=== PATIENT | male | born 1940 | race Caucasian/White ===

== ENCOUNTER → 2016-07-28 | Outpatient (CLI) | payer OTHER ==
[~2016-07-28] MED LIST: ADVAIR 250/501 EA INH; ALBUTEROL0.09 MG/A2 IH; ALBUTEROL2.5 MG/0.5 INH; AMLODIPINE BESYL5 MG PO; AMOXIL500 M1 PO; ANTIVERT/5050 MG PO; ANUCORT HC25 MG R; ASPI-COR81 M1 PO; ASPIR-LOW81 MG PO; ASPIRIN E.C.325 MG PO; ASPIRIN325 MG PO; ATORVASTATIN CA80 M1 PO; CARDIZEM120 MG PO; CENTRUM SILVER1 TA1 PO; CILOSTAZOL PO; CILOSTAZOL100 MG PO; CLARITIN10 MG PO; CREON 60,000U/1 CAP PO; DICYCLOMINE10 MG PO; ELIQUIS5 M1 PO; FINASTERIDE5 M1 PO; FLOMAX0.4 MG PO; GINKO BILOBA120 MG PO; HYDROCHLOROTHIA25 M1 PO; HYDROCODONE BIT1 T11 PO; HYDRODIURIL25 MG PO; IMDUR SA30 MG PO; ISOSORBIDE MONO30 MG PO; LIPITOR40 MG PO; LISINOPRIL20 MG PO; LIVALO2 MG PO; MAG-OX 400400 MG PO; METOPROLOL SUCC25 M2 PO; METOPROLOL SUCC50 M1 PO; METOPROLOL50 MG PO; MUCINEX600 MG PO; MUCUS RELIEF400 MG PO; NITROSTAT0.4 MG SL; NORVASC5 MG PO; NOVAPLUS AZITH500 MG PO; PANTOPRAZOLE SO40 MG PO; PANTOPRAZOLE40 M1 PO; PLAVIX75 MG PO; PREDNICOT10 MG PO; PREDNICOT20 MG PO; PROPAFENONE HC150 MG PO; PROSCAR5 MG PO; RED YEAST RICE600 MG PO; SERTRALINE HYDR25 MG PO; SYMBICORT1 AE1 INH; TEMAZEPAM15 M1 PO; TERAZOSIN HCL5 M1 PO; TESSALON PERLE200 MG PO; TYLENOL W/CODEI1 TA2 PO; TYLENOL325 M2 PO; VICODIN 500 MG-1 TAB PO; VITAMIN D32000 I1 PO; ZITHROMAX Z PA250 MG PO; ZYRTEC10 MG PO
== END | disposition home or self-care (01) ==
LOC: CT 07-26 09:00
DX: R91.1 Solitary pulmonary nodule (principal)

== ENCOUNTER → 2016-08-17 | Day surgery (SDC) | payer OTHER ==
[~2016-08-17] VITALS: Ht 177.8 cm; Wt 67.1 kg
--- NOTE | ~2016-08-17 | O ---
[place], [place] OPERATIVE NOTE NAME: STEFF WHALEN UNIT #: [id number] ROOM: DOCTOR: NICHOL AMADOR MD BIRTHDATE: [birth year] DOS: 08/17/2016 INDICATIONS: The patient is a 76-year-old who has presented with chief complaint of change in bowel habit, diarrhea, undergoing investigation. ALLERGIES: No known medication. FAMILY HISTORY: Noncontributory. PAST MEDICAL HISTORY: Hypertension. PAST SURGICAL HISTORY: Appendectomy. PROCEDURE: Today's procedure part of investigation is colonoscopy plus polypectomy plus biopsy randomly. PREMEDICATION: Versed and Diprivan. SCOPE: Olympus forward viewing colonoscope 10L video. REPORT: After putting the patient in the left lateral position and after application of lubricant to rectal pouch and digital examination, scope was introduced. Thereafter, under direct visualization, I advanced through the length of colon without difficulty. Colon mucosa and vascularity carefully examined. Base of the cecum explored, appendiceal orifice identified, and ileocecal valve was defined. Retained stool throughout the colon periodically was noticed. A sessile polypoid lesion in the rectal pouch with piecemeal polypectomy removed. Random biopsy of the transverse colon was obtained. The patient was gradually extubated, tolerated the procedure well. IMPRESSION: A colonic polyp at rectal pouch, status post piecemeal polypectomy, sessile in character. Otherwise, status post random biopsy of mid transverse colon, ruling out collagenous colitis, with retention of stool that I noticed during the course of examination. I am not suspecting severe diarrhea on this patient; however, the patient was advised to abstain from drinking 3 beers per day plus 3 shots of whiskey. Possibility of pancreatic insufficiency also has been considered. The patient is to follow up with you in office and p.r.n. visit with us in GI Clinic. The patient advised to abstain from smoking as well. Further workup as the biopsies become available. Thank you very much indeed. [place], [place] OPERATIVE NOTE NAME: STEFF WHALEN UNIT #: [id number] ROOM: DOCTOR: NICHOL AMADOR MD BIRTHDATE: [birth year] NICHOL AMADOR MD CM:OPRECORD:OPERATIVE NOTE 1342 1521 NICHOL AMADOR MD 08/17/16 1521 interface
[2016-08-17 13:00] VITALS: BP 162/98
[2016-08-17 13:40] VITALS: BP 121/67
[2016-08-17 13:54] VITALS: BP 153/70
[2016-08-17 14:07] VITALS: BP 155/76
== END | disposition home or self-care (01) ==
LOC: SDC 08-13 10:15
DX: K62.1 Rectal polyp (principal); I10 Essential (primary) hypertension; Z90.49 Acquired absence of other specified parts of digestive tract; J44.9 Chronic obstructive pulmonary disease, unspecified; I25.2 Old myocardial infarction; M19.90 Unspecified osteoarthritis, unspecified site; E78.5 Hyperlipidemia, unspecified; E55.9 Vitamin D deficiency, unspecified; N40.0 Benign prostatic hyperplasia without lower urinary tract symptoms; F10.20 Alcohol dependence, uncomplicated; Z82.49 Family history of ischemic heart disease and other diseases of the circulatory system; F17.210 Nicotine dependence, cigarettes, uncomplicated

== ENCOUNTER → 2016-10-01 | Outpatient (CLI) | payer OTHER ==
[2016-10-01 12:17] LABS: BASO % 0.1 % (0.0-1.0); EOS # 0.1 10*3/uL (0.0-0.4); EOS % 1.1 % (1.0-4.0); HEMATOCRIT 44.2 % (42.0-52.0); HEMOGLOBIN 15.3 g/dl (14.0-18.0); IG # 0.1 10*3/uL (0.0-0.1); LYMPH # 2.4 10*3/uL (1.3-4.4); LYMPH % 32.4 % (27.0-41.0); MEAN CELL VOLUME 90.2 fl (80.0-94.0); MEAN CORPUSCULAR HGB 31.2 pg (27.0-31.0); MEAN CORPUSCULAR HGB CONC 34.6 g/dl (33.0-37.0); MEAN PLATELET VOLUME 10.6 fl (9.6-12.3); MONO # 0.8 10*3/uL (0.1-1.0); MONO % 11.2 % (3.0-9.0); NEUT # 4.1 10*3/uL (2.3-7.9); NEUT % 54.3 % (47.0-73.0); PLATELET COUNT AUTOMATED 268 10*3/uL (130-400); RED CELL DISTRI WIDTH 14.3 % (0-14.5); WHITE BLOOD COUNT 7.5 10*3/uL (4.8-10.8)
[2016-10-01 12:43] LABS: ALBUMIN 3.8 gm/dl (3.1-4.5); BILIRUBIN, TOTAL 0.4 mg/dl (0.2-1.0); POTASSIUM 4.3 mmol/L (3.5-5.1)
== END ==
LOC: LAB 11:43
PROVIDERS: Internal Medicine
DX: K92.1 Melena (principal); A09 Infectious gastroenteritis and colitis, unspecified

== ENCOUNTER 2016-10-04 20:56 | Emergency (ER) | payer OTHER ==
[~2016-10-04] VITALS: Ht 180.3 cm; Wt 64.4 kg
[~2016-10-04 20:56] MED LIST changes: +IMDUR SA60 M1 PO; +IMODIUM AD0.2 MG/1 M PO; -ISOSORBIDE MONO30 MG PO; +MELATONIN3 MG PO; +METOPROLOL SUC100 M1 PO; -METOPROLOL SUCC50 M1 PO; +NITROGLYCERIN0.4 MG SL; +RED YEAST RICE600 M1 PO; +SERTRALINE HYD100 MG PO; -SERTRALINE HYDR25 MG PO; +VITAMIN B-11 TAB PO; +VITAMIN D5000 I3 PO; +XARELTO20 M1 PO
[2016-10-04 21:55] LABS: BASO % 0.2 % (0.0-1.0); EOS # 0.1 10*3/uL (0.0-0.4); EOS % 1.8 % (1.0-4.0); HEMATOCRIT 37.3 % (42.0-52.0); HEMOGLOBIN 12.9 g/dl (14.0-18.0); LYMPH # 2.4 10*3/uL (1.3-4.4); LYMPH % 39.5 % (27.0-41.0); MEAN CELL VOLUME 90.3 fl (80.0-94.0); MEAN CORPUSCULAR HGB 31.2 pg (27.0-31.0); MEAN CORPUSCULAR HGB CONC 34.6 g/dl (33.0-37.0); MEAN PLATELET VOLUME 11.1 fl (9.6-12.3); MONO # 0.6 10*3/uL (0.1-1.0); NEUT % 48.2 % (47.0-73.0); PLATELET COUNT AUTOMATED 181 10*3/uL (130-400); RED BLOOD COUNT 4.13 10*6/uL (4.50-5.90); RED CELL DISTRI WIDTH 14.5 % (0-14.5); WHITE BLOOD COUNT 6.1 10*3/uL (4.8-10.8)
[2016-10-04 22:05] LABS: PROTHROMBIN TIME 10.4 SECONDS (9.0-12.4)
[2016-10-04 23:09] LABS: ALBUMIN 3.2 gm/dl (3.1-4.5); ALKALINE PHOSPHATASE 46 U/L (45-117); BILIRUBIN, TOTAL 0.2 mg/dl (0.2-1.0); BUN 18 mg/dl (7-24); C-REACTIVE PROTEIN 1.08 MG/DL (0-0.3); CARBON DIOXIDE 26 mmol/L (21-32); CHLORIDE 106 mmol/L (98-107); EST GLOM FILT AFRICAN AMERICAN > 60 ml/min; GLUCOSE 88 mg/dL (65-99); MAGNESIUM 1.7 mg/dL (1.5-2.1); POTASSIUM 4.1 mmol/L (3.5-5.1); SGOT/AST 14 IU/L (3-35); SGPT/ALT 16 U/L (12-78); SODIUM 137 mmol/L (136-145); TOTAL PROTEIN 6.4 gm/dL (6.4-8.2); TROPONIN I < 0.015 ng/ml (<0.045)
== END 2016-10-05 01:14 | disposition home or self-care (01) ==
LOC: ED 20:57
PROVIDERS: Student in an Organized Health Care Education/Training Program
DX: R19.5 Other fecal abnormalities (principal); F17.200 Nicotine dependence, unspecified, uncomplicated; Z90.49 Acquired absence of other specified parts of digestive tract; N40.0 Benign prostatic hyperplasia without lower urinary tract symptoms; K21.9 Gastro-esophageal reflux disease without esophagitis; I13.0 Hypertensive heart and chronic kidney disease with heart failure and stage 1 through stage 4 chronic kidney disease, or unspecified chronic kidney disease; N18.3 Chronic kidney disease, stage 3 (moderate); E78.5 Hyperlipidemia, unspecified

== ENCOUNTER 2016-10-27 20:03 | Inpatient (IN) | payer OTHER ==
[~2016-10-27] VITALS: Ht 177.8 cm; Wt 72.6 kg
--- NOTE | ~2016-10-27 | CON ---
[place], [place] REPORT OF CONSULTATION NAME: STEFF WHALEN UNIT #: [id number] ROOM: 503 DOCTOR: MAICOL BATISTA MD BIRTHDATE: [birth year] DOS: REQUESTING PHYSICIAN: Dr. Hyde. REASON FOR CONSULTATION: Chest pain. ASSESSMENTS: 1. Current presentation with complaint of chest pain, an elephant sitting on the chest. 2. Elevated cardiac enzymes consistent with a non-ST elevation myocardial infarction. 3. Continued off and on cardiac complaint while on medication. 4. History of coronary artery disease, stress test in June of last year with Dr. Goff. 5. Normal stress test done by Dr. Mitchell this September with normal left ventricular function. 6. Hypertension. 7. Hyperlipidemia. 8. Active tobacco abuse. 9. Early family history of heart disease. 10. Known history of atrial flutter, currently on Xarelto. PLAN: 1. Continue tachycardiac enzymes including CPK and MB. 2. Continue Toprol-XL 100 mg daily, but change it to 50 mg b.i.d. 3. Hold Xarelto and switch to Lovenox now in preparation for possible cath in a.m. 4. Smoking cessation. 5. Imdur 60 mg once a day. 6. Continue aspirin. 7. Lipitor 80 mg x 1 now. 8. Aspirin 325 mg x 1 now. 9. Transfer the patient to [facility] in [place] for cardiac catheterization in a.m. HISTORY OF PRESENT ILLNESS: The patient is a pleasant 76-year-old gentleman well known to our practice, who initially had been seen and evaluated by Dr. Goff in June of last year with a stress test and the patient was positive for inferior ischemia. The patient was transferred for catheterization on [facility] where so far I do not have any details. Apparently, the patient had another stress test with Dr. Mitchell this September, which was reported to be normal. In between, the patient had been having complaining of chest pain, heaviness, tightness and it can occur 2-3 times a week. It can last 5-10 minutes and mostly at rest, but can be provoked by activity. The patient is still drowse, active, but does not follow a regular exercise program. There is some limitation towards he does mainly due to episode of chest pain. The pain is heavy, tight, yesterday had an episode that the patient felt an elephant sitting on his chest. With that there was some elevated troponin. The patient's Cardiology consultation was called in. Never had any symptomatic palpitation or any associated dizziness, lightheadedness or syncope. The patient sleeps on 2 [place], [place] REPORT OF CONSULTATION NAME: STEFF WHALEN UNIT #: [id number] ROOM: [facility] DOCTOR: MAICOL BATISTA MD BIRTHDATE: [birth year] pillows with no reported PND, orthopnea or pedal edema. There is no reported snoring. No fever, no chills, no night sweats, maintain good appetite, no weight loss. PAST MEDICAL HISTORY: As detailed in my assessment. SOCIAL HISTORY: The patient continued to smoke, has been doing this since he was 16 years old. No heavy alcohol or illicit drug abuse. FAMILY HISTORY: Both parents . His mother at age 70. His father in his early 60s with unknown cause. The patient has 1 brother and 6 sisters with no reported heart problems. CURRENT MEDICATIONS: Thiamine, Zoloft, Protonix, Toprol, Imdur, Proscar, vitamin D, Norvasc, Xarelto, Rythmol, Spiriva, Nitrostat. ALLERGIES: The patient has no known drug allergies. REVIEW OF SYSTEMS: CONSTITUTIONAL: Currently, the patient denies any headache, diplopia or blurry vision. No fever, no chills, no night sweats. No abdominal pain. No bright blood per rectum or tarry stools. MUSCULOSKELETAL: The patient admits to joint pain and occasional muscular pain. Admit to depression, but no anxiety. No polyuria. No polydipsia. No skin rash. Review of all other systems has been negative. PHYSICAL EXAMINATION: GENERAL: The patient is alert and oriented x3, quite pleasant. The patient is sitting completely flat in bed, does not appear in distress. Denies any current ongoing complaints. VITAL SIGNS: Blood pressure 143/89, heart rate 77, respiratory rate of 16, temperature 97.6. HEENT: Extraocular muscles intact. Pupils equal, round and reactive to light. Conjunctivae: No pallor. Throat: No petechiae. NECK: Good carotid upstroke. Unable to appreciate any bruit, no lymphadenopathy, no thyromegaly. HEART: S1, S2 with faint holosystolic murmur in the left upper sternal border. No rub. No retrosternal heave. CHEST AND BACK: No deformities. LUNGS: Significant decrease in air movement, but no jose wheezing or rales. ABDOMEN: Soft, nontender, present bowel sounds, faint periumbilical bruit with no masses. LOWER EXTREMITIES: There is no edema with faint distal pulses. NEUROLOGIC: Grossly nonfocal. SKIN: No significant rash. LABORATORY DATA: White count 6.9, hemoglobin 13, potassium 4.3, creatinine 1.4, BUN 18, EGFR 49%. Total cholesterol is 265. Triglyceride 226, LDL 179 and HDL 41. Normal thyroid function tests. Initial troponin 0.020, subsequent 0.089 and subsequent troponin 0.355. Chest x-ray, there is a small left pleural [place], [place] REPORT OF CONSULTATION NAME: STEFF WHALEN UNIT #: [id number] ROOM: [facility] DOCTOR: MAICOL BATISTA MD BIRTHDATE: [birth year] effusion. MAICOL BATISTA MD CM:CONSTR:REPORT OF CONSULTATION 1051 10/29/16 0154 interface
[2016-10-27 20:05] VITALS: BP 118/95
[2016-10-27 20:22] LABS: BASO % 0.2 % (0.0-1.0); EOS # 0.1 10*3/uL (0.0-0.4); EOS % 1.4 % (1.0-4.0); HEMATOCRIT 42.7 % (42.0-52.0); HEMOGLOBIN 14.9 g/dl (14.0-18.0); MEAN CELL VOLUME 90.3 fl (80.0-94.0); MEAN CORPUSCULAR HGB 31.5 pg (27.0-31.0); MEAN CORPUSCULAR HGB CONC 34.9 g/dl (33.0-37.0); MEAN PLATELET VOLUME 10.9 fl (9.6-12.3); MONO # 0.8 10*3/uL (0.1-1.0); MONO % 10.3 % (3.0-9.0); NEUT # 4.1 10*3/uL (2.3-7.9); NEUT % 50.9 % (47.0-73.0); PLATELET COUNT AUTOMATED 179 10*3/uL (130-400); RED BLOOD COUNT 4.73 10*6/uL (4.50-5.90); RED CELL DISTRI WIDTH 14.2 % (0-14.5)
[2016-10-27 20:32] LABS: INTERNATIONAL NORM RATIO 1.1 (2.0-3.5); PROTHROMBIN TIME 11.9 SECONDS (9.0-12.4)
[2016-10-27 20:40] VITALS: BP 119/85
[2016-10-27 20:40] LABS: ALBUMIN 3.9 gm/dl (3.1-4.5); BILIRUBIN, TOTAL 0.4 mg/dl (0.2-1.0); MAGNESIUM 1.6 mg/dL (1.5-2.1); POTASSIUM 4.1 mmol/L (3.5-5.1); TOTAL PROTEIN 7.6 gm/dL (6.4-8.2); TROPONIN I 0.018 ng/ml (<0.045)
[2016-10-27 21:30] VITALS: BP 137/80
[2016-10-27 22:00] VITALS: BP 141/64
[2016-10-27 23:00] VITALS: BP 149/93
[2016-10-27 23:44] VITALS: BP 133/85
[2016-10-28] VITALS (8 sets, daily range): BP systolic 118–155; BP diastolic 68–90
[2016-10-28 05:46] LABS: HEMOGLOBIN A1c 5.6 % (4.8-5.6)
[2016-10-28 05:57] LABS: FREE T4 0.89 ng/dl (0.76-1.46); POTASSIUM 4.3 mmol/L (3.5-5.1)
[2016-10-28 06:04] LABS: THYROID STIM HORMONE (HS) 2.51 uIU/ml (0.358-4.75)
[2016-10-28 06:06] LABS: BASO % 0.4 % (0.0-1.0); EOS # 0.2 10*3/uL (0.0-0.4); EOS % 2.3 % (1.0-4.0); HEMATOCRIT 37.4 % (42.0-52.0); LYMPH # 2.3 10*3/uL (1.3-4.4); LYMPH % 33.6 % (27.0-41.0); MEAN CELL VOLUME 90.1 fl (80.0-94.0); MEAN CORPUSCULAR HGB 31.3 pg (27.0-31.0); MEAN CORPUSCULAR HGB CONC 34.8 g/dl (33.0-37.0); MEAN PLATELET VOLUME 11.8 fl (9.6-12.3); MONO # 0.8 10*3/uL (0.1-1.0); MONO % 11.7 % (3.0-9.0); NEUT # 3.5 10*3/uL (2.3-7.9); NEUT % 51.4 % (47.0-73.0); PLATELET COUNT AUTOMATED 158 10*3/uL (130-400); RED BLOOD COUNT 4.15 10*6/uL (4.50-5.90); RED CELL DISTRI WIDTH 14.2 % (0-14.5); WHITE BLOOD COUNT 6.9 10*3/uL (4.8-10.8)
[2016-10-28 07:04] LABS: PROTHROMBIN TIME 11.1 SECONDS (9.0-12.4)
[2016-10-28] MEDS ORDERED: SPIRIVA18 MCG PO (08:38)
[2016-10-28 19:19] LABS: CKMB 4.9 ng/ml (0.5-3.6)
[2016-10-28 19:27] LABS: TROPONIN I 0.159 ng/ml (<0.045)
[2016-10-29] VITALS: BP 144/73
[2016-10-29 00:42] LABS: CKMB 3.9 ng/ml (0.5-3.6)
[2016-10-29 00:45] LABS: TROPONIN I 0.182 ng/ml (<0.045)
[2016-10-30 14:13] LABS: VITAMIN D, 25-HYDROXY 49.1 ng/mL (30-100)
[2016-10-30 14:14] LABS: FOLIC ACID 12.15 ng/mL (>5.38)
== END 2016-10-29 06:07 | disposition other institution (70) | DRG 281 ==
LOC: ED 20:03 → EDHOLD 21:51 → 5E 10-28 08:14
PROVIDERS: Emergency Medicine Emergency Medical Services; Internal Medicine; Internal Medicine Cardiovascular Disease
DX: I21.4 Non-ST elevation (NSTEMI) myocardial infarction (principal); I50.32 Chronic diastolic (congestive) heart failure; I13.0 Hypertensive heart and chronic kidney disease with heart failure and stage 1 through stage 4 chronic kidney disease, or unspecified chronic kidney disease; I48.92 Unspecified atrial flutter; N40.0 Benign prostatic hyperplasia without lower urinary tract symptoms; J44.9 Chronic obstructive pulmonary disease, unspecified; K21.9 Gastro-esophageal reflux disease without esophagitis; E78.2 Mixed hyperlipidemia; I73.9 Peripheral vascular disease, unspecified; N18.3 Chronic kidney disease, stage 3 (moderate); I48.91 Unspecified atrial fibrillation; F17.210 Nicotine dependence, cigarettes, uncomplicated; I08.1 Rheumatic disorders of both mitral and tricuspid valves; I25.10 Atherosclerotic heart disease of native coronary artery without angina pectoris; Z82.49 Family history of ischemic heart disease and other diseases of the circulatory system; Z89.021 Acquired absence of right finger(s); Z71.6 Tobacco abuse counseling; Z79.01 Long term (current) use of anticoagulants; Z79.82 Long term (current) use of aspirin; Z79.899 Other long term (current) drug therapy; Z90.49 Acquired absence of other specified parts of digestive tract; Z83.6 Family history of other diseases of the respiratory system; Z81.8 Family history of other mental and behavioral disorders; Z82.3 Family history of stroke; F10.10 Alcohol abuse, uncomplicated; Z95.9 Presence of cardiac and vascular implant and graft, unspecified

== ENCOUNTER → 2016-11-21 | Outpatient (CLI) | payer OTHER ==
[~2016-11-21] MED LIST changes: +SPIRIVA18 MCG PO
== END | disposition home or self-care (01) ==
LOC: US 12:20
DX: I73.9 Peripheral vascular disease, unspecified (principal); I65.23 Occlusion and stenosis of bilateral carotid arteries

== ENCOUNTER 2016-12-09 22:34 | Emergency (ER) | payer OTHER ==
[~2016-12-09] VITALS: Ht 180.3 cm; Wt 67.1 kg
[2016-12-09 23:30] LABS: BASO % 0.2 % (0.0-1.0); EOS # 0.1 10*3/uL (0.0-0.4); EOS % 1.4 % (1.0-4.0); HEMATOCRIT 37.8 % (42.0-52.0); HEMOGLOBIN 12.9 g/dl (14.0-18.0); LYMPH # 2.3 10*3/uL (1.3-4.4); LYMPH % 38.3 % (27.0-41.0); MEAN CELL VOLUME 91.1 fl (80.0-94.0); MEAN CORPUSCULAR HGB 31.1 pg (27.0-31.0); MEAN CORPUSCULAR HGB CONC 34.1 g/dl (33.0-37.0); MEAN PLATELET VOLUME 10.6 fl (9.6-12.3); MONO # 0.7 10*3/uL (0.1-1.0); MONO % 12.2 % (3.0-9.0); NEUT # 2.8 10*3/uL (2.3-7.9); NEUT % 47.4 % (47.0-73.0); PLATELET COUNT AUTOMATED 211 10*3/uL (130-400); RED BLOOD COUNT 4.15 10*6/uL (4.50-5.90); RED CELL DISTRI WIDTH 14.7 % (0-14.5); WHITE BLOOD COUNT 5.9 10*3/uL (4.8-10.8)
[2016-12-09 23:37] LABS: INTERNATIONAL NORM RATIO 1.1 (2.0-3.5)
[2016-12-09 23:44] LABS: ALBUMIN 3.6 gm/dl (3.1-4.5); CREATININE 1.7 mg/dL (0.70-1.30); POTASSIUM 4.1 mmol/L (3.5-5.1); TOTAL PROTEIN 7.1 gm/dL (6.4-8.2)
== END 2016-12-10 01:09 | disposition short-term general hospital (02) ==
LOC: ED 22:34
PROVIDERS: Physician Assistant
DX: I77.9 Disorder of arteries and arterioles, unspecified (principal); F17.200 Nicotine dependence, unspecified, uncomplicated; Z88.8 Allergy status to other drugs, medicaments and biological substances; Z88.6 Allergy status to analgesic agent

== ENCOUNTER → 2016-12-26 | Outpatient (CLI) | payer OTHER | LOC: CT 02:06 | DX: Z53.9 Procedure and treatment not carried out, unspecified reason (principal) ==

== ENCOUNTER → 2017-04-25 | Outpatient (CLI) | payer OTHER | END | disposition home or self-care (01) | LOC: CARD 13:58 | DX: I48.0 Paroxysmal atrial fibrillation (principal); R00.0 Tachycardia, unspecified ==

== ENCOUNTER → 2017-07-29 | Outpatient (CLI) | payer OTHER | END | disposition home or self-care (01) | LOC: CT 10:57 | DX: R91.1 Solitary pulmonary nodule (principal) ==

== ENCOUNTER → 2017-08-26 | Day surgery (SDC) | payer OTHER ==
[~2017-08-26] VITALS: Ht 177.8 cm; Wt 67.1 kg
--- NOTE | ~2017-08-26 | PROC NOTE ---
[place], [place] PROCEDURE NOTE NAME: [facility]EN [id number] UNIT #: [id number] ROOM: DOCTOR: YUDI CODY MD,BRIELLE BIRTHDATE: [birth year] DOS: 08/26/2017 BRONCHOSCOPY PREOPERATIVE DIAGNOSES: 1. The patient with persistent severe nonresolving cough with maximum medical therapy for chronic obstructive pulmonary disease. 2. Left upper lung ground-glass opacity, which noted gradual increase, suspected lung cancer. COMPLICATIONS: None. PROCEDURE DESCRIPTION: Informed consent was obtained from the patient. The patient was given conscious sedation for the procedure. The bronchoscope was advanced to the airway after sedation into the laryngeal area. The epiglottis and vocal cords were seen. The vocal cords move symmetrically with movements and yellowish in color. The bronchoscope was advanced to the vocal cords and tracheal lumen. Tracheal lumen noted a moderate amount of thick mucus secretion, which was suctioned out with the help of normal saline wash. The patient noted similar secretion causing impaction in multiple subsegments of the endotracheal tube. Bilateral secretions were suctioned out clear with the help of normal saline wash and sent for culture. BAL specimen was also obtained in the left upper lobe. There were no endobronchial obstructive lesions. The procedure was well tolerated by the patient without any difficulty. Postoperative findings were discussed with the patient's daughter in detail in the recovery room. BRIELLE BAGLEY MD CM:PROCNOTE:PROCEDURE NOTE [id number] 1321 BRIELLE CODY MD
[2017-08-26 08:00] VITALS: BP 143/79
[2017-08-26 09:00] VITALS: BP 162/42
[2017-08-26 09:15] VITALS: BP 153/67
[2017-08-26 09:28] VITALS: BP 158/76
[2017-08-26 10:45] LABS: BF LYMPHOCYTES 2 %; BF MACROPHAGES 80 %; BF NEUTROPHILS 18 %
[2017-08-27 13:03] LABS: ACID FAST SPEC PROCESSING Concentration (.)
[2017-09-24 16:11] LABS: ORGANISM ID, MOLD Final report (.)
[2017-10-07 15:06] LABS: ORGANISM ID BY SEQUENCING Streptomyces species (.)
[2017-10-08 14:08] LABS: ACID FAST CULTURE Positive (.)
== END | disposition home or self-care (01) ==
LOC: SDC 08-23 11:45
PROVIDERS: Internal Medicine Critical Care Medicine
DX: J40 Bronchitis, not specified as acute or chronic (principal); J44.9 Chronic obstructive pulmonary disease, unspecified; I10 Essential (primary) hypertension; I25.10 Atherosclerotic heart disease of native coronary artery without angina pectoris; I25.2 Old myocardial infarction; M19.90 Unspecified osteoarthritis, unspecified site; E78.00 Pure hypercholesterolemia, unspecified; E03.9 Hypothyroidism, unspecified; N40.0 Benign prostatic hyperplasia without lower urinary tract symptoms; F17.210 Nicotine dependence, cigarettes, uncomplicated; Z98.890 Other specified postprocedural states; Z90.49 Acquired absence of other specified parts of digestive tract; Z79.899 Other long term (current) drug therapy